=== PATIENT | male | born 1985 | race Caucasian/White ===

== ENCOUNTER 2021-03-06 10:00 | Emergency (ER) | payer MEDICAID ==
[~2021-03-06] VITALS: Ht 167.6 cm; Wt 80.7 kg
--- NOTE | 2021-03-06 10:09 | NUR ---
Patient ambulated with steady gait to bed 7.
[2021-03-06 10:17] VITALS: BP 133/72
[2021-03-06] MEDS ORDERED: IBUPROFEN 600 MG TAB PO ONE (10:20)
--- NOTE | 2021-03-06 10:22 | NUR ---
35 Y/O M BIB SELF FROM HOME, C/O L LEG PAIN FOR 3 DAYS, WORSENING LAST NIGHT. AMBULATES WITH PAIN, ASSISTED WHEELCHAIR TO BED AT THIS TIME. PT HAS LIMITED ROM AND IS UNABLE TO FLEX OR EXTEND L ANKLE. DENIES N/V/D; SKIN IS PINK/WARM/DRY; AAOX4; LUNGS CLEAR BL; HR EVEN AND REGULAR; PT DENIES ANY FEVER, CP, SOB, OR COUGH AT THIS TIME; PATIENT STATES PAIN OF 8/10 AT THIS TIME; VSS; PATIENT POSITIONED FOR COMFORT; HOB ELEVATED; BEDRAILS UP X2; BED DOWN. ER MD MADE AWARE OF PT STATUS. PMH: DENIES NKA MED: DENIES
--- NOTE | 2021-03-06 10:29 | NUR ---
X-Ray at bedside.
[2021-03-06 12:17] VITALS: BP 133/72
--- NOTE | 2021-03-06 12:17 | NUR ---
Patient discharged with v/s stable. Written and verbal after care instructions given and explained. Patient verbalized understanding. Ambulatory to car. All questions addressed prior to discharge. Advised to follow up with PMD.
== END 2021-03-06 12:17 | disposition home or self-care (01) ==
LOC: MED 10:00
DX: S93.402A Sprain of unspecified ligament of left ankle, initial encounter (principal); W22.8XXA Striking against or struck by other objects, initial encounter; Y93.89 Activity, other specified; Y92.89 Other specified places as the place of occurrence of the external cause; Y99.8 Other external cause status
CPT/HCPCS: 73610; 73630; 99284; Q0092